=== PATIENT | female | born 1985 | race Caucasian/White ===

== ENCOUNTER 2017-02-03 07:18 | Emergency (ER) ==
[2017-02-03 07:29] VITALS: BP 126/81
--- NOTE | 2017-02-03 07:46 | PROVIDER DOCUMENTATION ---
HPI-Respiratory General - General Chief Complaint: Cold Symptoms Stated Complaint: FEVER Time Seen by Provider: 02/03/17 07:30 Source: patient Allergies/Adverse Reactions: Patient Allergies Allergy/AdvReac Type Severity Reaction Status Date / Time amoxicillin Allergy ITCHING Verified 02/03/17 07:29 hydrocodone Allergy HIVES Verified 02/03/17 07:29 latex Allergy HIVES Verified 02/03/17 07:29 Sulfa (Sulfonamide Allergy HIVES Verified 02/03/17 07:29 Antibiotics) alprazolam [From Xanax] AdvReac "Makes me Verified 02/03/17 07:29 crazy" zolpidem tartrate * AdvReac "Makes me Verified 02/03/17 07:29 [From Ambien] crazy" Home Medications: Home Medication List Medication Instructions Recorded Confirmed Last Taken Type Azithromycin [Zithromax Z-Michael] 250 mg PO DIRECTED #1 pkg 02/03/17 Unknown Rx Cephalexin 500 mg PO 4XDAY 02/03/17 02/03/17 02/03/17 History Methylprednisolone [Medrol Dosepak] 4 mg PO DIRECTED #1 package 02/03/17 Unknown Rx - History of Present Illness-Resp Nature of Presenting Problem: Reports cough and fever/sinus congestion with Tmax 103 since 3-4 days ago. Was seen at [facility] and was given Steroids shot and Keflex for sinusitis. Symptoms not resolving. Fever 101 this AM. Took OTC Tylenol. Wants work excuse. Quality of Pain: reports: aching Severity in ED: reports: moderate Onset/Duration: reports: 4 days ago Timing: reports: still present Context: reports: recent foreign travel Exposure: reports: unknown cause, allergen exposure Cough Quality/Degree: reports: no cough Modifying Factors: improves with: nothing Associated Symptoms: reports: cough, fever/chills, flu-like symptoms, nasal congestion, nasal drainage, sinus pain. denies: earache, facial pain, headache , shortness of breath, short of breath, sore throat, wheezing Similar Symptoms Previously?: No Recently seen or treated by another doctor?: No Review of Systems - Adult - REVIEW OF SYSTEMS - ADULT Constitutional: reports: see HPI, fever, fatique Eyes: reports: no symptoms reported Ears, Nose, Mouth & Throat: reports: see HPI, sinus problem. denies: mouth swelling, throat pain, throat swelling Cardiovascular: reports: no symptoms reported Respiratory: reports: no symptoms reported, see HPI, chronic cough Gastrointestinal: reports: no symptoms reported Genitourinary: reports: no symptoms reported Musculoskeletal: reports: no symptoms reported Integumentary: reports: no symptoms reported Neurological: reports: no symptoms reported Psychiatric: reports: no symptoms reported Hematologic/Lymphatic: reports: no symptoms reported Allergic/Immunologic: reports: no symptoms reported All Other Systems: Reviewed and Negative Past History - Adult - PAST MEDICAL HISTORY-ADULT Review of Records: reports: Old Records Reviewed, Nursing Assessment Review, Medications Reviewed Major Childhood Illnesses: reports: denies history Cardiovascular: reports: HTN Respiratory: reports: asthma, bronchitis Gastrointestinal: reports: GERD Obstetrical/Gynecological: reports: denies history Genitourinary: reports: kidney stones Musculoskeletal: reports: denies history Neurological: reports: denies history Psychiatric: reports: depression Endocrine/Immune: reports: Diabetes Other Conditions: reports: denies history - PRIOR SURGERIES/PROCEDURES Surgical/Procedure History: reports: cholecystectomy, - PRIOR HOSPITALIZATIONS Prior Hospitalizations: reports: none - IMMUNIZATION STATUS Childhood Immunizations: See Nurse Assessment Flu Vaccine: See Nurse Assessment - FAMILY HISTORY Family History: reviewed, not pertinent Physical Exam-General - PHYSICAL EXAM-ADULT Initial Vital Signs Reviewed: Yes - CONSTITUTIONAL General Appearance: appears well, alert, no apparent distress - EYES Eyes: PERRL/EOMI, pink conjunctivae - HEAD, EARS, NOSE, MOUTH & THROAT HENMT: normocephalic/atraumatic, moist mucous membranes, normal ENT inspection - NECK Neck: non-tender, full range of motion, supple - RESPIRATORY Respiratory: chest non-tender, lungs clear, normal breath sounds, no pleuratic chest pain - CARDIOVASCULAR Cardiovascular: normal peripheral pulses, regular rate, rhythm - GASTROINTESTINAL (ABDOMEN) Abdominal Exam: normal bowel sounds, non tender, soft, no organomegaly - MUSCULOSKELETAL Back Exam: normal inspection, no CVA tenderness, no vertebral tenderness Extremity: normal range of motion, non-tender, normal gait, normal inspection - SKIN Integumentary: normal color, normal turgor, warm/dry - NEUROLOGIC Neurologic: grossly normal, no motor/sensory deficits, abnormal cerebellar tests - PSYCHIATRIC Psych/Mental Status: normal mood/affect, normal thought content, normal thought process, oriented x 3 Progress - PLAN OF CARE/RESULTS Progress/Plan/Lab Results: Laboratory Results - last 24 hr 03/20/17 07:56 Urine Source CLEAN CATCH Urine Color YELLOW Urine Clarity CLEAR Urine pH 6.5 Ur Specific [place] 1.010 Urine Protein NEGATIVE Urine Ketones TRACE Urine Blood 2+ A Urine Nitrite NEGATIVE Urine Bilirubin NEGATIVE Urine Urobilinogen NORMAL Urine Microscopic RBC 10-20 A Urine WBC TRACE A Urine Microscopic WBC <10 Ur Epithelial Cells <10 Urine Glucose NEGATIVE Bedside Urine ED: Urine Bedside Start: 02/03/17 08:17 Freq: ORDERED Status: Active Activity Type Activity Date Activity User Co-Sign Detail Recorded Client Recorded Date Recorded By Document 02/03/17 08:17 [id number] 02/03/17 08:19 [id number] 02/03/17 08:17 Point of Care [Bedside Point of Care] -Lot # [id number] - Results Negative -Control Line Visible? Yes Vital Signs Temp Pulse Resp BP Pulse Ox 02/03/17 07:26 97.9 F 76 18 126/81 99 amoxicillin Allergy (Verified 02/03/17 07:29) ITCHING hydrocodone Allergy (Verified 02/03/17 07:29) HIVES latex Allergy (Verified 02/03/17 07:29) HIVES Sulfa (Sulfonamide Antibiotics) Allergy (Verified 02/03/17 07:29) HIVES alprazolam [From Xanax] Adverse Reaction (Verified 02/03/17 07:29) "Makes me crazy" zolpidem tartrate * [From Ambien] Adverse Reaction (Verified 02/03/17 07:29) "Makes me crazy" Cephalexin 500 mg PO 4XDAY 02/03/17 Laboratory 02/03/17 07:56 Urine Source CLEAN CATCH Urine Color YELLOW Urine Clarity CLEAR Urine pH 6.5 Ur Specific [place] 1.010 Urine Protein NEGATIVE Urine Ketones TRACE Urine Blood 2+ A Urine Nitrite NEGATIVE Urine Bilirubin NEGATIVE Urine Urobilinogen NORMAL Urine Microscopic RBC 10-20 A Urine WBC TRACE A Urine Microscopic WBC <10 Ur Epithelial Cells <10 Urine Glucose NEGATIVE Orders Category Date Time Status ED: Urine Bedside ORDERED Care 02/03/17 08:17 Active CHEST-2 VIEWS [RAD] Stat Exams 02/03/17 07:[address] Stat Lab 02/03/17 07:[address] [URINALYSIS] Stat Lab 02/03/17 07:56 Completed URINE MICROSCOPIC [URINALYSIS] Stat Lab 02/03/17 07:56 Completed - XRAY 1 XRAY Study: Chest Impression: Normal Departure - Departure Time of Disposition Order: 08:48 DIAGNOSIS: Bronchitis Disposition: HOME 01 Certified Medical Emergency: Emergent Condition: Stable Additional Instructions: Follow up with regular MD in 2-3 days. Return to ER if your symptoms worsen. Prescriptions: Methylprednisolone [Medrol Dosepak] 4 mg PO DIRECTED #1 package Azithromycin [Zithromax Z-Michael] 250 mg PO DIRECTED #1 pkg Referrals: Leonarda Garces MD [Primary Care Provider] -
[2017-02-03 08:07] LABS: URINE SOURCE CLEAN CATCH
[2017-02-03 08:21] LABS: BILIRUBIN URINE NEGATIVE (NEGATIVE); BLOOD URINE 2+ (NEGATIVE); CLARITY CLEAR (CLEAR); COLOR YELLOW; GLUCOSE URINE NEGATIVE (NEGATIVE); LEUKOCYTES URINE TRACE (NEGATIVE); NITRITE URINE NEGATIVE (NEGATIVE); PH URINE 6.5; PROTEIN URINE NEGATIVE (NEGATIVE); URINE MICROSCOPIC NEEDED? YES; UROBILINOGEN URINE NORMAL
[2017-02-03 08:30] LABS: URINE EPITHELIAL CELLS <10 /HPF (<10); URINE WBC <10 /HPF (<10)
--- NOTE | 2017-02-03 09:40 | Diag Imaging Result Document ---
PROCEDURE NAME: CHEST-2 VIEWS - 02/03/2017 TWO VIEWS OF THE CHEST: FINDINGS: There is no evidence of acute cardiac or pulmonary disease. Compared to 09/21/2016, there has been no significant change in the appearance of the chest. IMPRESSION: No acute disease.
== END 2017-02-03 09:03 | disposition home or self-care (01) ==
LOC: P.ED 07:18
DX: J40 Bronchitis, not specified as acute or chronic (principal); R05 Cough; R50.9 Fever, unspecified; R09.81 Nasal congestion; R53.83 Other fatigue; I10 Essential (primary) hypertension; E11.9 Type 2 diabetes mellitus without complications
CPT/HCPCS: 71020; 81001; 87804; 99283